=== PATIENT | female | born 1980 | race Caucasian/White ===

== ENCOUNTER 2024-09-18 21:12 | Observation (INO) | payer OTHER ==
--- NOTE | 2024-09-18 21:46 | ED ---
Lower Extremity Injury HPI - General Chief Complaint: Extremity Injury, Lower Stated Complaint: Right big toe injury Time Seen by Provider: 09/18/24 21:30 Source: patient Mode of arrival: ambulatory - History of Present Illness Initial Comments: 43-year-old female presenting with chief complaint of open fracture to the right big toe. Patient was in [place] earlier this week, on Friday she hit her toe while she was at the pool and broke her toe. There is a large laceration over the top of the toe where you can see some bone exposure. She states that while she was there she had it irrigated and antiseptic applied. She was wrapping it every day and was told by her PCPs office to come back for orthopedic evaluation. She has been managing her pain with Tylenol, currently it is a 4 out of 10 throbbing pain. No fever. No redness. - Related Data Home Medications Medication Instructions Recorded Confirmed Albuterol Inhaler [Ventolin Hfa 2 puff INHALATION RT-QID PRN 09/19/24 09/19/24 Inhaler] Ergocalciferol (Vitamin D2) 1,250 mcg PO ESCUDERO 09/19/24 09/19/24 [Drisdol (50,000 Iu)] lisinopriL 40 mg PO DAILY 09/19/24 09/19/24 Allergies Allergy/AdvReac Type Severity Reaction Status Date / Time amoxicillin Allergy Nausea & Verified 09/19/24 13:43 Vomiting & Diarrhea Review of Systems ROS Statement: Those systems with pertinent positive or pertinent negative responses have been documented in the HPI. ROS Other: All systems not noted in ROS Statement are negative. Past Medical History Past Medical History: Hypertension Additional Past Surgical History / Comment(s): bariatric surgery Past Psychological History: No Psychological Hx Reported Smoking Status: Never smoker General Exam General appearance: alert, in no apparent distress Head exam: Present: atraumatic, normocephalic, normal inspection Eye exam: Present: normal appearance, EOMI Neck exam: Present: normal inspection. Absent: meningismus Respiratory exam: Absent: respiratory distress Cardiovascular Exam: Present: regular rate Right Foot/Toe exam: Present: tenderness, swelling, laceration, deformity. Absent: full ROM Neurological exam: Present: alert, oriented X3 Psychiatric exam: Present: normal affect, normal mood Course Vital Signs 09/18/24 09/19/24 09/19/24 21:15 00:10 03:28 Temperature 98.2 F Pulse Rate 78 69 72 Respiratory 18 16 18 Rate Blood Pressure 124/75 110/59 104/65 O2 Sat by Pulse 96 98 100 Oximetry Medical Decision Making - Medical Decision Making Was pt. sent in by a medical professional or institution (KATHY Fish, DIRECTOR OF RADIOLOGY, urgent care, hospital, or care home...) When possible be specific @ -No Did you speak to anyone other than the patient for history (EMS, parent, family, police, friend...)? What history was obtained from this source @ -No Did you review nursing and triage notes (agree or disagree)? Why? @ -I reviewed and agree with nursing and triage notes Were old charts reviewed (outside hosp., previous admission, EMS record, old EKG, old radiological studies, urgent care reports/EKG's, care home records)? Report findings @ -No old charts were reviewed Differential Diagnosis (chest pain, altered mental status, abdominal pain women, abdominal pain men, vaginal bleeding, weakness, fever, dyspnea, syncope, he adache, dizziness, GI bleed, back pain, seizure, CVA, palpatations, mental health, musculoskeletal)? @ -Differential includes open fracture, osteomyelitis, this is not an all- inclusive list EKG interpreted by me (3pts min.). @ -X-ray shows transverse fracture mid diaphysis distal phalanx right great toe with inferior displacement of the distal fracture fragment. Distal portion proximal fracture fragment may extend to the skin surface X-rays interpreted by me (1pt min.). @ -None done CT interpreted by me (1pt min.). @ -None done U/S interpreted by me (1pt. min.). @ -None done What testing was considered but not performed or refused? (CT, X-rays, U/S, labs)? Why? @ -None What meds were considered but not given or refused? Why? @ -None Did you discuss the management of the patient with other professionals (professionals i.e. KATHY Fish, DIRECTOR OF RADIOLOGY, lab, RT, psych nurse, vp digital marketing social media and crm, entertainment lawyer, teacher, air defense artillery officer, insurance case manager)? Give summary @ -I spoke with Dr. Sanchez who advised admission for IV antibiotics and placed the patient n.p.o., she will be taken to the OR today Was smoking cessation discussed for >3mins.? @ -No Was critical care preformed (if so, how long)? @ -No Were there social determinants of health that impacted care today? How? (Homelessness, low income, unemployed, alcoholism, drug addiction, transportation, low edu. Level, literacy, decrease access to med. care, longterm, rehab)? @ -No Was there de-escalation of care discussed even if they declined (Discuss DNR or withdrawal of care, Hospice)? DNR status @ -No What co-morbidities impacted this encounter? (DM, HTN, Smoking, COPD, CAD, Cancer, CVA, ARF, Chemo, Hep., AIDS, mental health diagnosis, sleep apnea, morbid obesity)? @ -None Was patient admitted / discharged? Hospital course, mention meds given and route, prescriptions, significant lab abnormalities, going to OR and other pertinent info. @ -43-year-old female presenting with chief complaint of open fracture of the right great toe, she sustained this injury on Friday while in [place]. She has had the wound cleansed while she was there, she has not received any antibiotics. Bone is visible on examination, patient has sensation intact, no foul discharge. X-ray confirms open fracture with displacement. No leukocytosis. CRP WNL. ESR is 30. Spoke with orthopedist on-call Dr. Sanchez, patient will be admitted for IV antibiotics in OR washout with pin placement. She is placed NPO. Patient is agreeable with this plan. I discussed this case with my attending Dr. Mariano Undiagnosed new problem with uncertain prognosis? @ -No Drug Therapy requiring intensive monitoring for toxicity (Heparin, Nitro, Insulin, Cardizem)? @ -No Were any procedures done? @ -No Diagnosis/symptom? @ -Open fracture of the right great toe Acute, or Chronic, or Acute on Chronic? @ -Acute Uncomplicated (without systemic symptoms) or Complicated (systemic symptoms)? @ -Complicated Side effects of treatment? @ -No Exacerbation, Progression, or Severe Exacerbation? @ -No Poses a threat to life or bodily function? How? (Chest pain, [place], [place], pneumonia, PE, COPD, DKA, ARF, appy, cholecystitis, CVA, Diverticulitis, Homicidal, Suicidal, threat to staff... and all critical care pts) @ -Yes she could lose the toe - Lab Data Result diagrams: 09/18/24 22:05 09/18/24 23:19 Lab Results 09/18/24 09/18/24 Range/Units 22:05 23:19 WBC 6.5 (3.8-10.6) k/uL RBC 4.13 (3.80-5.40) m/uL Hgb 11.3 L (11.4-16.0) gm/dL Hct 37.0 (34.0-46.0) % MCV 89.6 (80.0-100.0) fL MCH 27.4 (25.0-35.0) pg MCHC 30.6 L (31.0-37.0) g/dL RDW 17.4 H (11.5-15.5) % Plt Count 315 (150-450) k/uL MPV 8.1 Neutrophils % 61 % Lymphocytes % 32 % Monocytes % 5 % Eosinophils % 1 % Basophils % 0 % Neutrophils # 3.9 (1.3-7.7) k/uL Lymphocytes # 2.1 (1.0-4.8) k/uL Monocytes # 0.3 (0-1.0) k/uL Eosinophils # 0.1 (0-0.7) k/uL Basophils # 0.0 (0-0.2) k/uL Hypochromasia Marked Anisocytosis Slight ESR 30 H (0-20) mm/Hr Sodium 139 (137-145) mmol/L Potassium 3.4 L (3.5-5.1) mmol/L Chloride 112 H (98-107) mmol/L Carbon Dioxide 18 L (22-30) mmol/L Anion Gap 9 mmol/L BUN 12 (7-17) mg/dL Creatinine 0.55 (0.52-1.04) mg/dL Est GFR (CKD-EPI)AfAm >90 (>60 ml/min/1.73 sqM) Est GFR (CKD-EPI)NonAf >90 (>60 ml/min/1.73 sqM) Glucose 109 H (74-99) mg/dL Calcium 8.5 (8.4-10.2) mg/dL Total Bilirubin 0.1 L (0.2-1.3) mg/dL AST 22 (14-36) U/L ALT 18 (4-34) U/L Alkaline Phosphatase 64 (38-126) U/L C-Reactive Protein <0.5 (<1.0) mg/dL Total Protein 5.9 L (6.3-8.2) g/dL Albumin 3.5 (3.5-5.0) g/dL Disposition Clinical Impression: Open fracture of right great toe Disposition: ADMITTED IP TO THIS HOSP Condition: Serious
[2024-09-18] MEDS: KETOROLAC 15 MG/ML 1 ML VIAL IVP STA (22:03)
[2024-09-18] MEDS: SODIUM CHLORIDE 0.9% 1,000 ML IV ONE (22:03)
[2024-09-18 22:39] LABS: Anisocytosis Slight; Basophils % (A) 0 %; Eosinophils # (A) 0.1 k/uL (0-0.7); Eosinophils % (A) 1 %; HGB 11.3 gm/dL (11.4-16.0); Hypochromasia Marked; Lymphocytes # (A) 2.1 k/uL (1.0-4.8); Lymphocytes % (A) 32 %; MCH 27.4 pg (25.0-35.0); MCHC 30.6 g/dL (31.0-37.0); MCV 89.6 fL (80.0-100.0); Mean Platelet Volume 8.1; Monocytes # (A) 0.3 k/uL (0-1.0); Monocytes % (A) 5 %; Neutrophils # (A) 3.9 k/uL (1.3-7.7); Neutrophils % (A) 61 %; Platelet Count 315 k/uL (150-450); RBC 4.13 m/uL (3.80-5.40); RDW 17.4 % (11.5-15.5); WBC 6.5 k/uL (3.8-10.6)
[2024-09-18 23:53] LABS: ALT 18 U/L (4-34); AST 22 U/L (14-36); African American GFR (CKD) >90 (>60 ml/min/1.73 sqM); Albumin 3.5 g/dL (3.5-5.0); Alkaline Phosphatase 64 U/L (38-126); Anion Gap 9 mmol/L; Blood Urea Nitrogen 12 mg/dL (7-17); C Reactive Protein <0.5 mg/dL (<1.0); Calcium 8.5 mg/dL (8.4-10.2); Carbon Dioxide 18 mmol/L (22-30); Chloride 112 mmol/L (98-107); Glucose 109 mg/dL (74-99); Non-African American GFR(CKD) >90 (>60 ml/min/1.73 sqM); Potassium 3.4 mmol/L (3.5-5.1); Sodium 139 mmol/L (137-145); Total Bilirubin 0.1 mg/dL (0.2-1.3); Total Protein 5.9 g/dL (6.3-8.2)
[2024-09-19] MEDS: POTASSIUM CHLORIDE ER 20 MEQ TAB.ER PO STA (00:22)
[2024-09-19] MEDS ORDERED: NALOXONE 0.4 MG/ML 1 ML VIAL IV PRN (03:26)
[2024-09-19] MEDS: SODIUM CHLORIDE 0.9% 1,000 ML IV SCH ×2 (03:36→11:50)
[2024-09-19] MEDS ORDERED: VANCOMYCIN IV PER PHARMACY 1 EACH MISC MISCELLANE PRN ×2 (03:40→10:40)
[2024-09-19] MEDS: VANCOMYCIN 1,500 MG in SODIUM CHLORIDE 0.9% 500 ML 500 ML IVPB ONE (04:22)
--- NOTE | 2024-09-19 08:18 | P.HPOR ---
History of Present Illness H&P Date: 09/19/24 This is a 43-year-old female who is admitted for an open right great toe fracture. Patient states that she injured the right great toe going downstairs while she was on vacation in [place] on 09/14/2024. Patient states that she has been able to ambulate and has been keeping a clean dressing on the toe daily. Patient states that she has only needed Tylenol for pain. Patient denies any fever/chills, purulent drainage, erythema, numbness, weakness or tingling. Patient's past medical history significant for hypertension and she reports previous bariatric surgery. Review of Systems See HPI. Past Medical History Past Medical History: Hypertension History of Any Multi-Drug Resistant Organisms: None Reported Additional Past Surgical History / Comment(s): bariatric surgery Past Anesthesia/Blood Transfusion Reactions: No Reported Reaction Past Psychological History: No Psychological Hx Reported Smoking Status: Never smoker Medications and Allergies Allergies Allergy/AdvReac Type Severity Reaction Status Date / Time amoxicillin Allergy Nausea & Verified 09/18/24 21:45 Vomiting & Diarrhea Physical Examination On exam patient is resting comfortably in bed in no acute distress. Patient is alert and oriented 3. Right lower extremity: There is a laceration over dorsal aspect of the right g reat toe just proximal to the toenail. Patient has good motion of the right great toe. Capillary refill is normal at less than 2 seconds. There is no significant swelling, erythema or drainage. Sensation is intact. Neurovascular status and circulatory status are intact. Exams of bilateral upper extremities and the left lower extremity are within normal limits. Head is normocephalic and atraumatic. Results X-rays of the right great toe dated 09/18/2024 reveal a distal phalanx fracture of the right great toe. - Labs Labs: Abnormal Lab Results - Last 24 Hours (Table) 09/18/24 09/18/24 Range/Units 22:05 23:19 Hgb 11.3 L (11.4-16.0) gm/dL MCHC 30.6 L (31.0-37.0) g/dL RDW 17.4 H (11.5-15.5) % Potassium 3.4 L (3.5-5.1) mmol/L Chloride 112 H (98-107) mmol/L Carbon Dioxide 18 L (22-30) mmol/L Glucose 109 H (74-99) mg/dL Total Bilirubin 0.1 L (0.2-1.3) mg/dL Total Protein 5.9 L (6.3-8.2) g/dL H & H 09/18/24 Range/Units 22:05 Hgb 11.3 L (11.4-16.0) gm/dL Hct 37.0 (34.0-46.0) % Result Diagrams: 09/18/24 22:05 09/18/24 23:19 Assessment and Plan (1) Open fracture of right great toe Current Visit: Yes Status: Acute Code(s): S92.401B - DISPLACED UNSP FRACTURE OF RIGHT GREAT TOE, INIT FOR OPN FX SNOMED Code(s): 383190358 Plan: 1. Patient has been NPO. Imaging is reviewed revealing a fracture of the right great toe. 2. Surgical options are discussed at bedside. Irrigation and debridement with possible pinning of the right great toe is discussed with the patient at bedside today. Questions and concerns are addressed at bedside today.
--- NOTE | 2024-09-19 08:33 | XR ---
EXAMINATION TYPE: XR toes RT DATE OF EXAM: 09/18/2024 10:17 PM COMPARISON: None. CLINICAL INDICATION: Female, 43 years old with history of Open fracture big toe, pain TECHNIQUE: 3 view(s) obtained. FINDINGS: There is a transverse fracture mid diaphysis right great toe. The distal fracture fragment is displac ed inferiorly in relation to the proximal fracture fragment. Complete diastases the fracture line is evident. The lateral view the proximal fracture fragment appears to be extending through the skin chris face superiorly. IMPRESSION: 1. Transverse fracture mid diaphysis distal phalanx right great toe with inferior displacement of th e distal fracture fragment. Distal portion proximal fracture fragment may extend to the skin surface. [facility], , 09/19/2024 8:31 AM
[2024-09-19] MEDS ORDERED: fentaNYL (PF) 50 MCG/ML 2 ML AMP ONE (10:08)
[2024-09-19] MEDS ORDERED: PROPOFOL 10 MG/ML 20 ML VIAL IV ONE (10:08)
[2024-09-19] MEDS ORDERED: GLYCOPYRROLATE 0.2 MG/ML 2 ML VIAL ONE (10:08)
[2024-09-19] MEDS: IV FLUID CONTINUATION 1,000 ML IV ONE (10:08)
[2024-09-19] MEDS ORDERED: LIDOCAINE 1% INJ 10MG/ML (20 ML MDV) ONE (10:08)
[2024-09-19] MEDS ORDERED: ONDANSETRON 4 MG/2 ML VIAL ONE (10:08)
[2024-09-19] MEDS ORDERED: MIDAZOLAM 2 MG/2 ML VIAL ONE (10:08)
[2024-09-19] MEDS: BUPIVACAINE (PF) 0.25% 30 ML VIAL SQ ONE ×2 (10:29)
--- NOTE | 2024-09-19 11:04 | P.OP ---
Date of Procedure: 09/19/24 Procedure(s) Performed: PREOPERATIVE DIAGNOSES: 1. Right foot great toe open fracture grade II with delay in definitive fixation POSTOPERATIVE DIAGNOSES: 1. Right foot great toe open fracture grade II with delay in definitive fixation PROCEDURES PERFORMED: 1. Right foot great toe open fracture open reduction internal fixation (percutaneous pinning) 2. Irrigation and debridement and closure of open fracture wound ANESTHESIA: environmental manager: None COMPLICATIONS: None ESTIMATED BLOOD LOSS: 5 mL. DISPOSITION: To post-anesthesia care unit INDICATIONS: Cory is a 43 year old female who sustained an injury to the right foot while she was in [place] recently. The toe evidently was hyperflexed on concrete and she came down on the toe with her body weight. The injury consists of a displaced open grade 2 fracture of the distal phalanx. She fortunately had a cleaning done in [place] at what sounds like a local clinic followed by initial treatment in a hospital with a more formal washout. However, she evidently did not get IV or oral antibiotics. She came in last night with the distal phalanx still protruding through the skin just proximal to the nail and was immediatey given IV antibiotics. I recommended exploration and debridement of the open wound as well as possible fixation of the fracture. I have discussed the steps of the operation as well as potential risks and complications as being inclusive of, but not limited to: Bleeding, infection, scarring, discomfort, blood vessel and/or nerve damage, inability to fix the fragments, tendon injury, reflex sympathetic dystrophy, persistent pain, limp, anesthesia risks, loss of the toe, , and other risks. She is aware of the increased risk of osteomyelitis considering the lack of antibiotics at the time of the injury. The patient wishes to proceed with surgery and has signed a consent form. PROCEDURE: After appropriate consent was obtained, the patient was taken to the operating room placed in the supine position. Anesthesia was initiated, and after confirmation of adequate anesthesia, the patient was carefully positioned. Care was taken to make sure that all pressure points were adequately padded. Prepping and draping were completed in the usual aseptic fashion using Hibiclens prep. Timeout was called, confirming patient identity, side, procedure, and administration of antibiotics. The wound was explored first. The fracture and injury had rendered the distal portion of the great toe quite unstable. No significant foreign objects or debris/dirt was noted within the open fracture wound. The wound measured approximate 2 cm in size on both the medial and lateral sides of the toe, just adjacent to the proximal portion of the nail, for a total laceration of 5 cm (including the area dorsal where the nail plate was avulsed. Thorough irrigation using saline 500 cc was performed. Wound soak for 3 minutes in dilute chlorhexidine solution was performed. The fracture was then fixed with a 0.054 inch K wire inserted anterograde through the distal fragment and then inserted retrograde back into the proximal phalanx. C-arm imaging was used in 2 planes to confirm proper pin placement. The pin was cut at the skin surface. The open fracture wound was then thoroughly re-irrigated once again using an additional 500 cc of normal saline in pulsatile fashion. As the wound appeared to be very clean without any evidence of residual foreign debris, and I felt that thorough repair of the soft tissues would assist in further stabilizing this fracture, 2 sutures of 4-0 nylon suture were placed on the dorsal lateral side of the open fracture site to stabilize soft tissue, and the skin was repaired with interrupted 4-0 nylon sutures. The great toe was sufficiently stable at this point. Sterile dressing was then applied consisting of antibiotic ointment, nonadherent gauze, small fluff dressing between the first and second toes, and a post op shoe was appied. Patient tolerated the procedure well and taken to recovery room in stable condition. Sponge and needle counts were correct.
[2024-09-19 11:08] LABS: Erythrocyte Sedimentation Rate 30 mm/Hr (0-20)
[2024-09-19] MEDS: HYDROcodone/APAP 5-325MG 1 EACH TAB PO PRN ×2 (11:48→17:53)
[2024-09-19] MEDS: HYDROmorphone 1 MG/ML 1 ML SYRINGE IVP PRN (14:41)
[2024-09-19] MEDS: VANCOMYCIN 1,500 MG in SODIUM CHLORIDE 0.9% 500 ML 500 ML IVPB SCH (17:39)
[2024-09-19] MEDS: KETOROLAC 15 MG/ML 1 ML VIAL IVP PRN (21:35)
[2024-09-20 06:06] LABS: African American GFR (CKD) >90 (>60 ml/min/1.73 sqM); Anion Gap 7 mmol/L; Blood Urea Nitrogen 9 mg/dL (7-17); Calcium 8.3 mg/dL (8.4-10.2); Carbon Dioxide 20 mmol/L (22-30); Chloride 111 mmol/L (98-107); Glucose 84 mg/dL (74-99); Non-African American GFR(CKD) >90 (>60 ml/min/1.73 sqM); Potassium 4.1 mmol/L (3.5-5.1); Sodium 138 mmol/L (137-145)
--- NOTE | 2024-09-20 08:41 | P.CONS ---
History of Present Illness - Reason for Consult Consult date: 09/19/24 Right big toe wound Requesting physician: Kimberly Vazquez - Chief Complaint Right big toe wound and pain x 5 days - History of Present Illness Patient is a 43-year-old female with a past medical history significant for hypertension apparently who was recently in [place] on vacation and injured her right great toe with a laceration and fracture that has been bethany ated in [place] patient came back to [place] on home 09/18/2024 and presenting to [facility] for evaluation of the right big toe injury patient denies having any fever or any chills was complaining of pain to the big toe up to mostly dull aching to throbbing about 5-6 out of 10 without radiation he did have a laceration and discoloration to the toe from the bleeding but denies having any foul-smelling drainage patient on presentation to the hospital was afebrile no fever have been called subsequently patient was not tachycardic hypotensive or hypoxic patient did have white count of 6.5 creatinine 0.55 urine hCG was negative patient did have 2 x-ray did shows a transverse fracture mid diaphysis of the distal phalanx right great toe with inferior displacement of the distal fracture fragment patient has been evaluated by orthopedics and the patient is status post operative repair of this fracture with open reduction internal fixation percutaneous pinning irrigation and debridement and closure of the open fracture wound operative report did not mention any purulent drainage and no culture was done patient has been started on vancomycin concerning for contaminated wound and risk of infection infectious disease was consulted for further management of antibiotic therapy Review of Systems Positive point and negatives has been mentioned in the HPI, complete review of systems was performed and all other systems are negative Past Medical History Past Medical History: Hypertension History of Any Multi-Drug Resistant Organisms: None Reported Additional Past Surgical History / Comment(s): bariatric surgery Past Anesthesia/Blood Transfusion Reactions: No Reported Reaction Past Psychological History: No Psychological Hx Reported Smoking Status: Never smoker Medications and Allergies Home Medications Medication Instructions Recorded Confirmed Type Albuterol Inhaler [Ventolin Hfa 2 puff INHALATION RT-QID PRN 09/19/24 09/19/24 History Inhaler] Ergocalciferol (Vitamin D2) 1,250 mcg PO ESCUDERO 09/19/24 09/19/24 History [Drisdol (50,000 Iu)] lisinopriL 40 mg PO DAILY 09/19/24 09/19/24 History Allergies Allergy/AdvReac Type Severity Reaction Status Date / Time amoxicillin Allergy Nausea & Verified 09/19/24 13:43 Vomiting & Diarrhea Physical Exam Vitals: Vital Signs Temp Pulse Pulse Pulse Resp BP BP 09/19/24 11:08 73 16 111/62 09/19/24 10:53 98 F 74 16 120/66 09/19/24 07:05 98.5 F 67 17 97/62 09/19/24 04:26 97.2 F L 63 16 111/74 09/19/24 03:28 72 18 104/65 09/19/24 00:10 69 16 110/59 09/18/24 21:15 98.2 F 78 18 124/75 Pulse Ox 09/19/24 11:08 98 09/19/24 10:53 96 09/19/24 07:05 100 09/19/24 04:26 100 09/19/24 03:28 100 09/19/24 00:10 98 09/18/24 21:15 96 Intake and Output 09/18/24 09/19/24 09/19/24 22:59 06:59 14:59 Intake Total 150 Output Total 5 Balance 145 Intake: IV 150 Output: Estimated Blood Loss 5 Other: # Voids 1 Weight 88.451 kg 88.451 kg GENERAL DESCRIPTION: Middle-aged female lying in bed, no distress. No tachypnea or accessory muscle of respiration use. HEENT: Shows Pallor , no scleral icterus. Oral mucous membrane is dry. NECK: Trachea central, no thyromegaly. LUNGS: Unlabored breathing. Clear to auscultation anteriorly. No wheeze or crackle. HEART: S1, S2, regular rate and rhythm. No loud murmur ABDOMEN: Soft, no tenderness , guarding or rigidity, no organomegaly EXTREMITIES: No edema of feet. Right big toe wound is currently dressed no drainage on the dressing SKIN: No rash, no masses palpable. NEUROLOGICAL: The patient is awake, alert, oriented x3, mood and affect normal. Results CBC & Chem 7: 09/18/24 22:05 09/20/24 05:28 Labs: Abnormal Lab Results - Last 24 Hours (Table) 09/18/24 09/18/24 Range/Units 22:05 23:19 Hgb 11.3 L (11.4-16.0) gm/dL MCHC 30.6 L (31.0-37.0) g/dL RDW 17.4 H (11.5-15.5) % ESR 30 H (0-20) mm/Hr Potassium 3.4 L (3.5-5.1) mmol/L Chloride 112 H (98-107) mmol/L Carbon Dioxide 18 L (22-30) mmol/L Glucose 109 H (74-99) mg/dL Total Bilirubin 0.1 L (0.2-1.3) mg/dL Total Protein 5.9 L (6.3-8.2) g/dL Assessment and Plan (1) Open wound of right great toe Current Visit: Yes Status: Acute Code(s): S91.101A - UNSP OPEN WOUND OF RIGHT GREAT TOE W/O DAMAGE TO NAIL, INIT SNOMED Code(s): 83317559747344243 (2) Open fracture of right great toe Current Visit: Yes Status: Acute Code(s): S92.401B - DISPLACED UNSP FRACTURE OF RIGHT GREAT TOE, INIT FOR OPN FX SNOMED Code(s): 958405919 Plan: 1patient presented to hospital with right big toe pain wound in this patient who did have a injury sustained outside of [place] country with evidence of frac tures status post open repair of the fracture and closure of the wound opened reported admission any abscess or any purulent drainage that was cultured can be described as a possible clean wound less risk of infection but development of infection down the road not entirely excluded this has been explained to the patient 2May continue with vancomycin pharmacy to dose while inpatient we will consider oral doxycycline for short course on discharge We will follow on clinical condition and cultures to further adjust medication if needed Thank you for this consultation we will follow the patient along with you Dictation was produced using [employer] dictation software. please excuse any grammatical, word or spelling errors. Time with Patient: Greater than 30
[2024-09-20] MEDS ORDERED: ALBUTEROL NEBULIZED 2.5 MG/3 ML INHALATION PRN (08:54)
--- NOTE | 2024-09-20 08:55 | P.CONS ---
History of Present Illness - Reason for Consult Consult date: 09/20/24 - History of Present Illness This is a 43-year-old female with medical history significant for hypertension and bariatric surgery. Patient comes into the hospital pain realignment in the evening with an open fracture of the right great toe patient states that she was in [place] earlier this week and while she was there on Friday she hit her toe at the pool and broke it. There is a large laceration of the top of the toe and there is some bone exposure. Patient states that while she was in [place] she had a irrigated and antiseptic applied and she has been wrapping it every day she came back to the [facility] and went into her PCP office and was told that she needs orthopedic evaluation. Patient is currently managing the pain with Tylenol but does report pain to be 4-5 out of 10 and throbbing she has not had any fever and there is no redness to this area. Patient came into the hospital for further evaluation. Initial blood work reveals a white blood cell count of 6.5, sodium 139 potassium of 3.4, BUN of 12 creatinine of 0.55. Urine hCG is nondetected. Patient went for open reduction and internal fixation with percutaneous pinning with irrigation debridement and closure of the open fracture wound and September 19 and is evaluated today postoperative day #1. Infectious disease was consulted for antibiotic management. Medical consultation was requested yesterday however patient's own PCP was entered and this patient did not show up on the list until today. REVIEW OF SYSTEMS: CONSTITUTIONAL: No fever, no malaise, no fatigue. HEENT: No recent visual problems or hearing problems. Denied any sore throat. CARDIOVASCULAR: No chest pain, orthopnea, PND, no palpitations, no syncope. PULMONARY: No shortness of breath, no cough, no hemoptysis. GASTROINTESTINAL: No diarrhea, no nausea, no vomiting, no abdominal pain. NEUROLOGICAL: No headaches, no weakness, no numbness. HEMATOLOGICAL: Denies any bleeding or petechiae. GENITOURINARY: Denies any burning micturition, frequency, or urgency. MUSCULOSKELETAL/RHEUMATOLOGICAL: Denies any joint pain, swelling, or any muscle pain. ENDOCRINE: Denies any polyuria or polydipsia. The rest of the 14-point review of systems is negative. PHYSICAL EXAMINATION: GENERAL: The patient is alert and oriented x3, not in any acute distress. Well developed, well nourished. HEENT: Pupils are round and equally reacting to light. EOMI. No scleral icterus. No conjunctival pallor. Normocephalic, atraumatic. No pharyngeal erythema. No thyromegaly. CARDIOVASCULAR: S1 and S2 present. No murmurs, rubs, or gallops. PULMONARY: Chest is clear to auscultation, no wheezing or crackles. ABDOMEN: Soft, nontender, nondistended, normoactive bowel sounds. No palpable organomegaly. MUSCULOSKELETAL: No joint swelling or deformity. EXTREMITIES: No cyanosis, clubbing, or pedal edema. NEUROLOGICAL: Gross neurological examination did not reveal any focal deficits. SKIN: No rashes. Surgical dressing intact Assessment and plan Right foot great toe open fracture grade II with delay in fixation postoperative day #1 open reduction and internal fixation with percutaneous pinning Irrigation debridement and closure of the open fracture wound Hypertension currently normotensive is maintained on lisinopril on an outpatient basis which is currently held Vitamin D deficiency maintained on Drisdol weekly History of bariatric surgery Obesity GI prophylaxis DVT prophylaxis Full Code Plan Continue holding lisinopril as she is currently normotensive Infectious disease following the patient continues on IV vancomycin Resume albuterol inhaler Patient is weightbearing as tolerated Monitor electrolytes and renal function Thank you currently for this consultation we will continue to follow along as needed The impression and plan of care has been dictated by Naomy Raymundo Nurse Practitioner as directed. Dr. Luci MD I have performed a history and physical examination and medical decision making of this patient, discussed the same with the dictator, and agree with the dictators assessment and plan as written, documented as a scribe. Based on total visit time, I have performed more than 50% of this visit. Past Medical History Past Medical History: Hypertension History of Any Multi-Drug Resistant Organisms: None Reported Additional Past Surgical History / Comment(s): bariatric surgery Past Anesthesia/Blood Transfusion Reactions: No Reported Reaction Past Psychological History: No Psychological Hx Reported Smoking Status: Never smoker Medications and Allergies Home Medications Medication Instructions Recorded Confirmed Type Albuterol Inhaler [Ventolin Hfa 2 puff INHALATION RT-QID PRN 09/19/24 09/19/24 History Inhaler] Ergocalciferol (Vitamin D2) 1,250 mcg PO ESCUDERO 09/19/24 09/19/24 History [Drisdol (50,000 Iu)] lisinopriL 40 mg PO DAILY 09/19/24 09/19/24 History Allergies Allergy/AdvReac Type Severity Reaction Status Date / Time amoxicillin Allergy Nausea & Verified 09/19/24 13:43 Vomiting & Diarrhea Physical Exam Vitals: Vital Signs Temp Pulse Pulse Resp BP Pulse Ox 09/20/24 08:00 98.8 F 91 16 129/69 97 09/20/24 01:59 98.2 F 81 17 98/63 93 L 09/19/24 20:00 61 64 17 09/19/24 17:30 97.8 F 64 17 107/60 100 09/19/24 13:35 79 106/61 09/19/24 13:05 74 116/78 98 09/19/24 12:35 64 114/79 97 09/19/24 12:20 58 L 124/83 99 09/19/24 12:04 56 L 119/77 98 09/19/24 11:49 59 L 113/76 99 09/19/24 11:34 62 16 108/69 97 09/19/24 11:21 61 16 110/65 98 09/19/24 11:08 73 16 111/62 98 09/19/24 10:53 98 F 74 16 120/66 96 Intake and Output 09/19/24 09/20/24 09/20/24 22:59 06:59 14:59 Other: # Voids 1 2 Results CBC & Chem 7: 09/18/24 22:05 09/20/24 05:28 Labs: Abnormal Lab Results - Last 24 Hours (Table) 09/18/24 09/20/24 Range/Units 22:05 05:28 ESR 30 H (0-20) mm/Hr Chloride 111 H (98-107) mmol/L Carbon Dioxide 20 L (22-30) mmol/L Calcium 8.3 L (8.4-10.2) mg/dL Assessment and Plan Time with Patient: Less than 30
[2024-09-20] MEDS ORDERED: ACETAMINOPHEN TAB 325 MG TAB PO PRN (10:00)
[2024-09-20] MEDS ORDERED: traMADol 50 MG TAB PO PRN (10:00)
--- NOTE | 2024-09-20 10:51 | P.PN ---
Subjective Progress Note Date: 09/20/24 This is a 43-year-old female who is status post ORIF of a right great toe open fracture with percutaneous pinning and irrigation and debridement with closure of open fracture wound. This is postoperative day #1 and patient is seen and evaluated at bedside today. Patient states that her pain is very well- controlled and she denies any new complaints today. Patient states that she has been able to ambulate with her postop shoe. Objective - Vital Signs Vital signs: Vital Signs Temp 98.8 F 09/20/24 08:00 Pulse 91 09/20/24 08:00 Resp 16 09/20/24 08:00 BP 129/69 09/20/24 08:00 Pulse Ox 97 09/20/24 08:00 FiO2 Intake & Output 09/19/24 09/20/24 09/20/24 18:59 06:59 18:59 Intake Total 150 Output Total 5 Balance 145 Intake: IV 150 Output: Estimated Blood Loss 5 Other: # Voids 3 2 - Exam Vital signs are stable. Patient is in no acute distress and is alert and oriented 3. Calf is soft and nontender to palpation. Dressing is clean, dry, and intact. Patient has full foot and ankle motion without pain or difficulty. Sensation intact. Neurovascular status and circulatory status are intact. - Labs CBC & Chem 7: 09/18/24 22:05 09/20/24 05:28 Labs: Abnormal Lab Results - Last 24 Hours (Table) 09/18/24 09/20/24 Range/Units 22:05 05:28 ESR 30 H (0-20) mm/Hr Chloride 111 H (98-107) mmol/L Carbon Dioxide 20 L (22-30) mmol/L Calcium 8.3 L (8.4-10.2) mg/dL Assessment and Plan Assessment: Status post ORIF right great toe open fracture with percutaneous pinning. Status post irrigation and debridement with closure of open fracture wound. (1) Open fracture of right great toe Current Visit: Yes Status: Acute Code(s): S92.401B - DISPLACED UNSP FRACTURE OF RIGHT GREAT TOE, INIT FOR OPN FX SNOMED Code(s): 192598698 Plan: 1. Patient may weight-bear as tolerated with her postop shoe. 2. Continue routine postoperative care and pain control. 3. Appreciate input from infectious disease. 4. Planning for discharge home tomorrow on oral antibiotics.
[2024-09-20] MEDS: traMADol 50 MG TAB PO PRN (13:30)
[2024-09-20] MEDS: HEPARIN SODIUM,PORCINE 5,000 UNIT/ML 1 ML VIAL SQ SCH (13:30)
[2024-09-20] MEDS: PANTOPRAZOLE 40 MG TABLET PO SCH (13:30)
[2024-09-21 08:48] VITALS: BP 104/67; PULSE 71; RESP 18; TEMP 98.4
[2024-09-21 09:09] LABS: Blood Urea Nitrogen 8.1 mg/dL (9.0-27.0); Calcium 7.9 mg/dL (8.7-10.3); Carbon Dioxide 21.2 mmol/L (21.6-31.8); Chloride 112 mmol/L (96-109); Glucose 82 mg/dL (70-110); Sodium 141 mmol/L (135-145)
[2024-09-21] MEDS ORDERED: HYDROcodone/APAP 7.5-325MG 1 EACH TAB PO PRN ×2 (13:54)
--- NOTE | 2024-09-21 14:03 | P.DS ---
Providers Date of admission: 09/19/24 03:34 Expected date of discharge: 09/21/24 Attending physician: Indra Sanchez Consults: 09/19/24 10:37 Consult Physician Routine Consulting Provider: Soto Hardin Consult Reason/Comments: s/p I&D open fracture of great toe Do you want consulting provider notified?: Yes 09/19/24 10:41 Consult Physician Routine Consulting Provider: Erin Verma Consult Reason/Comments: medical management Do you want consulting provider notified?: Yes Primary care physician: Alvin Castanon MD - Discharge Diagnosis(es) (1) Open fracture of right great toe Current Visit: Yes Status: Acute Hospital Course: This is a 43-year-old female who sustained an open fracture of the right great toe on 09/14/2024 while vacationing in [place]. Patient presented to the emergency room for further evaluation where x-rays revealed a distal phalanx fracture of the right great toe. After discussion and consideration patient elects to proceed with irrigation and debridement with possible percutaneous pinning of the right great toe. The patient is seen preoperatively by Dr. Sanchez. Patient is admitted to [facility] on 09/19/2024 and irrigation and debridement with closure of open fracture wound along with ORIF of the right great toe was performed on 09/19/2024. The procedure is performed without complication or sequelae. The patient is doing well postoperatively. Labs and vital signs are stable on day of discharge. Infectious disease has been on consult for antibiotic management. On day of discharge patient's incision is healing well with mild drainage present. There is minimal erythema. There is minimal soft tissue swelling. Patient has full foot and ankle motion without difficulty or pain. Calf is soft and nontender to palpation. Neurovascular status to the right lower extremity is intact. Patient is discharged home in good condition. Please see med rec for accurate list of home medications. Patient Condition at Discharge: Serious Plan - Discharge Summary Discharge Rx Participant: No New Discharge Prescriptions: New Sennosides [Senokot] 2 tab PO DAILY PRN #60 tablet PRN Reason: Constipation Doxycycline Hyclate 100 mg PO BID #20 cap HYDROcodone/APAP 7.5-325MG [Dale 7.5-325] 1 tab PO Q6H PRN #28 tab PRN Reason: Pain Discontinued lisinopriL 40 mg PO DAILY No Action Albuterol Inhaler [Ventolin Hfa Inhaler] 2 puff INHALATION RT-QID PRN PRN Reason: Shortness Of Breath Ergocalciferol (Vitamin D2) [Drisdol (50,000 Iu)] 1,250 mcg PO ESCUDERO Discharge Medication List Albuterol Inhaler [Ventolin Hfa Inhaler] 2 puff INHALATION RT-QID PRN 09/19/24 [History] Ergocalciferol (Vitamin D2) [Drisdol (50,000 Iu)] 1,250 mcg PO ESCUDERO 09/19/24 [ History] Sennosides [Senokot] 2 tab PO DAILY PRN #60 tablet 09/20/24 [Rx] Doxycycline Hyclate 100 mg PO BID #20 cap 09/21/24 [Rx] HYDROcodone/APAP 7.5-325MG [Dale 7.5-325] 1 tab PO Q6H PRN #28 tab 09/21/24 [Rx] Follow up Appointment(s)/Referral(s): Alvin Castanon MD [Primary Care Provider] - 1-2 days Indra Sanchez MD [STAFF PHYSICIAN] - 1 Week Activity/Diet/Wound Care/Special Instructions: Daily dressing changes. Weightbearing as tolerated with post op shoe. Please take medications as prescribed and follow up with [facility]. [phone]. Discharge Disposition: HOME SELF-CARE
[2024-09-21] MEDS: DOXYCYCLINE 100 MG CAP PO SCH (15:07)
--- NOTE | 2024-09-22 08:40 | P.PN ---
Subjective Progress Note Date: 09/20/24 Principal diagnosis: Reason for follow-up is right big toe wound fracture Patient is a 43-year-old female with a past medical history significant for hypertension apparently who was recently in [place] on vacation and injured her right great toe with a laceration and fracture that has been treated in [place] patient subsequently did have a I&D closure of the open fract ure with concern for open wound and possible contamination and risk of infection, patient was started on vancomycin and prompting this consultation. On today's evaluation that is 09/20/2023, patient has been afebrile, patient is breathing comfortably and is currently on room air, patient denies having any significant cough no chest pain, patient denies nausea vomiting or diarrhea and no abdominal pain patient pain to the right big toe slightly decreased in intensity. Patient did have a creatinine 0.65 no CBC was done today Objective - Vital Signs Vital signs: Vital Signs Temp 98.8 F 09/20/24 08:00 Pulse 91 09/20/24 08:00 Resp 16 09/20/24 08:00 BP 129/69 09/20/24 08:00 Pulse Ox 97 09/20/24 08:00 FiO2 Intake & Output 09/19/24 09/20/24 09/20/24 18:59 06:59 18:59 Intake Total 150 500 Output Total 5 Balance 145 500 Intake: IV 150 Oral 500 Output: Estimated Blood Loss 5 Other: # Voids 3 2 - Exam GENERAL DESCRIPTION: Middle-age female lying in bed in no distress RESPIRATORY SYSTEM: Unlabored breathing , decreased breath sounds at bases HEART: S1 S2 regular rate and rhythm , ABDOMEN: Soft , no tenderness EXTREMITIES: Right big toe wound is currently dressed - Labs CBC & Chem 7: 09/18/24 22:05 09/21/24 05:29 Labs: Abnormal Lab Results - Last 24 Hours (Table) 09/18/24 09/20/24 Range/Units 22:05 05:28 ESR 30 H (0-20) mm/Hr Chloride 111 H (98-107) mmol/L Carbon Dioxide 20 L (22-30) mmol/L Calcium 8.3 L (8.4-10.2) mg/dL Assessment and Plan (1) Open wound of right great toe Status: Acute Code(s): S91.101A - UNSP OPEN WOUND OF RIGHT GREAT TOE W/O DAMAGE TO NAIL, INIT SNOMED Code(s): 24920151925733069 (2) Open fracture of right great toe Status: Acute Code(s): S92.401B - DISPLACED UNSP FRACTURE OF RIGHT GREAT TOE, INIT FOR OPN FX SNOMED Code(s): 601007617 Plan: 1patient presented to hospital with right big toe pain wound in this patient who did have a injury sustained outside of the country with evidence of fractures status post open repair of the fracture and closure of the wound opened reported admission any abscess or any purulent drainage that was cultured can be described as a possible clean wound less risk of infection but development of infection down the road not entirely excluded this has been explained to the patient 2patient to continue with vancomycin pharmacy to dose while inpatient and monitor clinical course closely Dictation was produced using [employer] dictation software. please excuse any grammatical, word or spelling errors. Time with Patient: Less than 30
--- NOTE | 2024-09-22 08:41 | P.PN ---
Subjective Progress Note Date: 09/21/24 Principal diagnosis: Reason for follow-up is right big toe wound fracture Patient is a 43-year-old female with a past medical history significant for hypertension apparently who was recently in [place] on vacation and injured her right great toe with a laceration and fracture that has been treated in [place] patient subsequently did have a I&D closure of the open fract ure with concern for open wound and possible contamination and risk of infection, patient was started on vancomycin and prompting this consultation. On today's evaluation that is 09/21/2023, Patient is afebrile this morning patient denies having any chest pain shortness of breath or cough, the patient is currently on room air, patient denies any abdominal pain no diarrhea no nausea no vomiting, patient mention improvement of the pain to the right big toe feeling better. No CBC was done creatinine is 0.5 Objective - Vital Signs Vital signs: Vital Signs Temp 98.4 F 09/21/24 08:00 Pulse 71 09/21/24 08:00 Resp 18 09/21/24 08:00 BP 104/67 09/21/24 08:00 Pulse Ox 100 09/21/24 08:00 FiO2 Intake & Output 09/20/24 09/21/24 09/21/24 18:59 06:59 18:59 Intake Total 1339 Balance 1339 Intake: Oral 1339 Other: Voiding Method Toilet # Voids 2 1 - Exam GENERAL DESCRIPTION: Middle-age female lying in bed in no distress RESPIRATORY SYSTEM: Unlabored breathing , decreased breath sounds at bases HEART: S1 S2 regular rate and rhythm , ABDOMEN: Soft , no tenderness EXTREMITIES: Right big toe wound is currently dressed - Labs CBC & Chem 7: 09/18/24 22:05 09/21/24 05:29 Labs: Abnormal Lab Results - Last 24 Hours (Table) 09/21/24 Range/Units 05:29 Chloride 112 H (96-109) mmol/L Carbon Dioxide 21.2 L (21.6-31.8) mmol/L BUN 8.1 L (9.0-27.0) mg/dL Creatinine 0.5 L (0.6-1.5) mg/dL Calcium 7.9 L (8.7-10.3) mg/dL Assessment and Plan (1) Open wound of right great toe Status: Acute Code(s): S91.101A - UNSP OPEN WOUND OF RIGHT GREAT TOE W/O D AMAGE TO NAIL, INIT SNOMED Code(s): 97312825106120370 (2) Open fracture of right great toe Status: Acute Code(s): S92.401B - DISPLACED UNSP FRACTURE OF RIGHT GREAT TOE, INIT FOR OPN FX SNOMED Code(s): 016849104 Plan: 1patient presented to hospital with right big toe pain wound in this patient who did have a injury sustained outside of the country with evidence of fractures status post open repair of the fracture and closure of the wound ope justin reported admission any abscess or any purulent drainage that was cultured can be described as a possible clean wound less risk of infection but development of infection down the road not entirely excluded this has been explained to the patient 2patient remains to be afebrile reviewed the picture on the picture taken this morning, dressing changes did not show significant redness or drainage we will consider 10-day course of doxycycline on discharge prescription has been sent to the pharmacy patient vies if any worsening swelling redness drainage or fever to let me know right away Dictation was produced using [employer] dictation software. please excuse any grammatical, word or spelling errors. Time with Patient: Less than 30
--- NOTE | 2024-09-22 22:19 | P.PN ---
Subjective Progress Note Date: 09/21/24 This is a 43-year-old female with medical history significant for hypertension and bariatric surgery. Patient comes into the hospital pain realignment in the evening with an open fracture of the right great toe patient states that she was in [place] earlier this week and while she was there on Friday she hit her toe at the pool and broke it. There is a large laceration of the top of the toe and there is some bone exposure. Patient states that while she was in [place] she had a irrigated and antiseptic applied and she has been wrapping it every day she came back to the [facility] and went into her PCP office and was told that she needs orthopedic evaluation. Patient is currently managing the pain with Tylenol but does report pain to be 4-5 out of 10 and throbbing she has not had any fever and there is no redness to this area. Patient came into the hospital for further evaluation. Initial blood work reveals a white blood cell count of 6.5, sodium 139 potassium of 3.4, BUN of 12 creatinine of 0.55. Urine hCG is nondetected. Patient went for open reduction and internal fixation with percutaneous pinning with irrigation debridement and closure of the open fracture wound and September 19 and is evaluated today postoperative day #1. Infectious disease was consulted for antibiotic management. Medical consultation was requested yesterday however patient's own PCP was entered and this patient did not show up on the list until today. 09/21/2024 Patient is evaluated today post right great toe open reduction and internal fixation with percutaneous pinning. She has been cleared for DC home by orthopedics. Dressing intact. ID recommending 10 days of oral doxycycline. Blood pressure remains normotensive and discussed holding lisinopril. Patient agreeable. REVIEW OF SYSTEMS: CONSTITUTIONAL: No fever, no malaise, no fatigue. HEENT: No recent visual problems or hearing problems. Denied any sore throat. CARDIOVASCULAR: No chest pain, orthopnea, PND, no palpitations, no syncope. PULMONARY: No shortness of breath, no cough, no hemoptysis. GASTROINTESTINAL: No diarrhea, no nausea, no vomiting, no abdominal pain. NEUROLOGICAL: No headaches, no weakness, no numbness. PHYSICAL EXAMINATION: GENERAL: The patient is alert and oriented x3, not in any acute distress. Well developed, well nourished. HEENT: Pupils are round and equally reacting to light. EOMI. No scleral icterus. No conjunctival pallor. Normocephalic, atraumatic. No pharyngeal erythema. No thyromegaly. CARDIOVASCULAR: S1 and S2 present. No murmurs, rubs, or gallops. PULMONARY: Chest is clear to auscultation, no wheezing or crackles. ABDOMEN: Soft, nontender, nondistended, normoactive bowel sounds. No palpable organomegaly. MUSCULOSKELETAL: No joint swelling or deformity. EXTREMITIES: No cyanosis, clubbing, or pedal edema. NEUROLOGICAL: Gross neurological examination did not reveal any focal deficits. SKIN: No rashes. Surgical dressing intact Assessment and plan Right foot great toe open fracture grade II with delay in fixation postoperative day #2 open reduction and internal fixation with percutaneous pinning Irrigation debridement and closure of the open fracture wound Hypertension currently normotensive is maintained on lisinopril on an outpatient basis which is currently held Vitamin D deficiency maintained on Drisdol weekly History of bariatric surgery Obesity GI prophylaxis DVT prophylaxis Full Code Plan Continue holding lisinopril as she is currently normotensive Infectious disease following the patient continues on IV vancomycin and has been transitioned to 10 day course of oral doxycycline on discharge. Follow up with ID in the office. Resume albuterol inhaler Patient is weightbearing as tolerated Monitor electrolytes and renal function Thank you currently for this consultation we will continue to follow along as needed Medically patient is stable for discharge home. The impression and plan of care has been dictated by Naomy Raymundo, Nurse Practitioner as directed. Dr. Luci MD I have performed a history and physical examination and medical decision making of this patient, discussed the same with the dictator, and agree with the dictators assessment and plan as written, documented as a scribe. Based on total visit time, I have performed more than 50% of this visit. Objective - Vital Signs Vital signs: Vital Signs Temp 98.4 F 09/21/24 08:00 Pulse 71 09/21/24 08:00 Resp 18 09/21/24 08:00 BP 104/67 09/21/24 08:00 Pulse Ox 100 09/21/24 08:00 FiO2 Intake & Output 09/20/24 09/21/24 09/21/24 18:59 06:59 18:59 Intake Total 1339 Balance 1339 Intake: Oral 1339 Other: Voiding Method Toilet # Voids 2 1 - Labs CBC & Chem 7: 01/11/25 22:05 09/21/24 05:29 Labs: Abnormal Lab Results - Last 24 Hours (Table) 09/21/24 Range/Units 05:29 Chloride 112 H (96-109) mmol/L Carbon Dioxide 21.2 L (21.6-31.8) mmol/L BUN 8.1 L (9.0-27.0) mg/dL Creatinine 0.5 L (0.6-1.5) mg/dL Calcium 7.9 L (8.7-10.3) mg/dL Assessment and Plan Time with Patient: Less than 30
== END 2024-09-21 15:07 | disposition home or self-care (01) ==
LOC: EC 21:12 → 6NMEDSUR 09-19 03:34
PROVIDERS: ADMIT Orthopaedic Surgery; ATTEND Orthopaedic Surgery
DX: S92.401B Displaced unspecified fracture of right great toe, initial encounter for open fracture (principal); W22.8XXA Striking against or struck by other objects, initial encounter; Y92.34 Swimming pool (public) as the place of occurrence of the external cause; I10 Essential (primary) hypertension; E55.9 Vitamin D deficiency, unspecified; E66.9 Obesity, unspecified; Z68.34 Body mass index [BMI] 34.0-34.9, adult; Z98.84 Bariatric surgery status; Z79.899 Other long term (current) drug therapy; Z88.0 Allergy status to penicillin
CPT/HCPCS: 96366 ×2; 96367; 96375 ×3; 96365 ×2; 99284; 36415; 80053; 80048 ×2; 85652; 85025; 86140; 81025; 73660; 28505; G0378 ×3; C1713; J2250; J3370 ×3; J1644 ×2; J0690; J2405; J2003; J3010; J1171; J1885 ×4; J2704; J0665; J1596